=== PATIENT | female | born 1940 | race Caucasian/White ===

== ENCOUNTER 2018-03-23 12:43 | Emergency (ER) | payer MEDICARE ==
--- NOTE | 2018-03-23 13:09 | ED ---
Lower Extremity - HPI Summary HPI Summary: A 77 y/o F presents to ED with LLE pain at ankle onset at 12:15 this date when she slipped on the ice. She denies pain elsewhere. Associated sx: L ankle swelling. The pain is 10/10 with weight-bearing. PMHx: DM, depression. She is a non-smoker, no ETOH. - History of Current Complaint Chief Complaint: EDExtremityLower Stated Complaint: LEFT ANKLE INJURY Time Seen by Provider: 03/23/18 13:01 Hx Obtained From: Patient Mechanism Of Injury: Fall From A Standing Position Onset of Pain: Immediate, Prior to Arrival Onset/Duration: Hours Severity Initially: Severe Severity Currently: Severe Pain Intensity: 10 Pain Scale Used: 0-10 Numeric Timing: Constant Location: Is Discrete @ - LLE Associated Signs And Symptoms: Positive: Negative. Negative: Knee Pain Aggravating Factor(s): Weight Bearing - Allergies/Home Medications Allergies/Adverse Reactions: Allergies Allergy/AdvReac Type Severity Reaction Status Date / Time sulfamethoxazole Allergy Rash Verified 03/23/18 12:49 [From Bactrim] trimethoprim [From Bactrim] Allergy Rash Verified 03/23/18 12:49 metformin Allergy Unknown Uncoded 03/23/18 12:49 Reaction Details Home Medications: Home Medications ARIPiprazole [Aripiprazole] 10 mg PO 03/23/18 [History] Desvenlafaxine [Desvenlafaxine ER] 50 mg PO 03/23/18 [History] Dulaglutide (NF) [Trulicity (NF)] 03/23/18 [History] Gabapentin CAP(*) [Neurontin 100 mg CAP(*)] 100 mg PO QID 03/23/18 [History Confirmed 03/23/18] PMH/Surg Hx/FS Hx/Imm Hx Previously Healthy: No Endocrine/Hematology History: Reports: Hx Diabetes Denies: Hx Anticoagulant Therapy Cardiovascular History: Reports: Other Cardiovascular Problems/Disorders - pnuemonia x 2 over last four years History: Reports: Other Problems/Disorders - minimal change kidney disorder urine into blood stream? Psychiatric History: Reports: Hx Depression - Surgical History Surgery Procedure, Year, and Place: gallbladder partial hyster Infectious Disease History: No Infectious Disease History: Denies: Traveled Outside the [place] in Last 30 Days - Family History Family History: Neg: breast CA - Social History Occupation: Retired Lives: Alone Alcohol Use: None Hx Substance Use: No Substance Use Type: Reports: None Hx Tobacco Use: No Smoking Status (MU): Never Smoked Tobacco Review of Systems Negative: Fever Positive: Arthralgia - L ankle, Edema - L ankle All Other Systems Reviewed And Are Negative: Yes Physical Exam - Summary Physical Exam Summary: VITAL SIGNS: Reviewed. GENERAL: Patient is a well-developed and nourished FEMALE who is lying comfortable in the stretcher. Patient is not in any acute respiratory distress. HEAD AND FACE: No signs of trauma. No ecchymosis, hematomas or skull depressions. No sinus tenderness. EYES: PERRLA, EOMI x 2, No injected conjunctiva, no nystagmus. EARS: Hearing grossly intact. Ear canals and tympanic membranes are within normal limits. MOUTH: Oropharynx within normal limits. NECK: Supple, trachea is midline, no adenopathy, no JVD, no carotid bruit, no c- spine tenderness, neck with full ROM. CHEST: Symmetric, no tenderness at palpation LUNGS: Clear to auscultation bilaterally. No wheezing or crackles. CVS: Regular rate and rhythm, S1 and S2 present, no murmurs or gallops appreciated. ABDOMEN: Soft, non-tender. No signs of distention. No rebound, no guarding, and no masses palpated. Bowel sounds are normal. EXTREMITIES: FROM in all major joints, no edema, no cyanosis or clubbing EXCEPT swelling to L lateral malleolus with decreased ROM, which has good pulses, good capillary refill, and good sensations NEURO: Alert and oriented x 3. No acute neurological deficits. Speech is normal and follows commands. SKIN: Dry and warm Triage Information Reviewed: Yes Vital Signs On Initial Exam: Initial Vitals Temp Pulse Resp BP Pulse Ox 97.8 F 73 19 126/83 99 03/23/18 12:46 03/23/18 12:46 03/23/18 12:46 03/23/18 12:46 03/23/18 12:46 Vital Signs Reviewed: Yes Diagnostics - Vital Signs Vital Signs Temp Pulse Resp BP Pulse Ox 03/23/18 12:46 97.8 F 73 19 126/83 99 - Laboratory Lab Statement: Any lab studies that have been ordered have been reviewed, and results considered in the medical decision making process. - Radiology L FOOT Radiology Interpretation Completed By: Radiologist Summary of Radiographic Findings: IMPRESSION: 1. A minimally displaced fibular fracture is incompletely evaluated. 2. No fracture within the left foot. 3. Osteopenia. 4. Moderate osteoarthropathy about the dorsal midfoot, first MTP and first IP. ED provider has reviewed this report. L ANKLE Radiology Interpretation Completed By: Radiologist Summary of Radiographic Findings: IMPRESSION: 1. There is soft tissue swelling about the lateral malleolus. 2. A minimally displaced, transversely oriented, distal fibular fracture extends to the level of the talar dome. ED provider has reviewed this report. Re-Evaluation - Re-Evaluation 1 Comment: Discussing XR results with pt. Lower Extremity Course/Dx - Course Assessment/Plan: A 77 y/o F presents to ED with LLE pain at ankle onset at 12: 15 this date when she slipped on the ice. She denies pain elsewhere. Associated sx: L ankle swelling. The pain is 10/10 with weight-bearing. PMHx: DM, depression. She is a non-smoker, no ETOH. Ankle x-ray impression: There is a soft tissue swelling about the lateral malleolus. Minimal displaced transversely oriented distal fibular fractures extends to the level of the talus bone. Foot x-ray impression: Minimal displaced fibular fracture is incomplete evaluated. Osteopenia. Moderate osteoarthropathy about the dorsal midfoot. First MTP and first IP. I placed in a posterior splint in the left lower extremity without any complications. Before and after the splint placement the patient is neurovascularly intact. Patient has good pulses and good capillary refill. Discussed the case with Dr. Pastrana from orthopedics and recommends discharged home and follow up with her office tomorrow morning. Patient will be given crutches, pain medication and she will be discharged home with follow-up with orthopedics. - Diagnoses Differential Diagnosis/HQI/PQRI: Positive: Bursitis, Contusion, Fracture (Closed ), Sprain, Strain Provider Diagnoses: Fracture of fibula, distal, left, closed - Physician Notifications Discussed Care Of Patient With: Ryanne Pastrana - ortho Time Discussed With Above Provider: 14:22 Instructed by Provider To: Other - Recommends D/C and f/u in office tomorrow Discharge - Sign-Out/Discharge Documenting (check all that apply): Patient Departure - DC - Discharge Plan Condition: Stable Disposition: HOME Prescriptions: HYDROcodone/ACETAMIN 5-325 MG* [Americus 5-325 TAB*] 1 tab PO Q6H PRN #10 tab MDD 4 PRN Reason: Pain Patient Education Materials: Hydrocodone/Acetaminophen (By mouth), Ankle Fracture (ED) Referrals: Celestina Sams MD [Primary Care Provider] - 3 Days Ryanne aPstrana MD [Medical Doctor] - 1 Day Additional Instructions: RETURN TO THE ED FOR ANY WORSENING OR NEW SYMPTOMS. Follow up with Dr. Pastrana, orthopedics, tomorrow. - Billing Disposition and Condition Condition: STABLE Disposition: Home - Attestation Statements Document Initiated by Scribe: Yes Documenting Scribe: Pamela Duff Provider For Whom Mike is Documenting (Include Credential): Dr. Saqib Barrera MD Scribe Attestation: Pamela Bradshaw, scribed for Dr. Saqib Barrera MD on 03/24/18 at 1719. Scribe Documentation Reviewed: Yes Provider Attestation: The documentation as recorded by the Pamela michele accurately reflects the service I personally performed and the decisions made by me, Dr. Saqib Barrera MD Status of Scribe Document: Viewed
[2018-03-23 15:02] VITALS: BP 179/85
== END 2018-03-23 15:00 | disposition home or self-care (01) ==
LOC: ED 12:43
DX: S82.402A Unspecified fracture of shaft of left fibula, initial encounter for closed fracture (principal); R60.9 Edema, unspecified; W00.0XXA Fall on same level due to ice and snow, initial encounter; Y92.9 Unspecified place or not applicable; Z88.2 Allergy status to sulfonamides; E11.9 Type 2 diabetes mellitus without complications
CPT/HCPCS: 99282

== ENCOUNTER 2023-08-24 21:26 | Observation (INO) ==
[2023-08-24] MEDS ORDERED: Lidocaine 2% w/ EPI 1:200,000 MPF 20 ML SDV VIAL ONE (21:52)
[2023-08-24] MEDS: Lidocaine 1% w EPI 1:200,000 SDV 30 ML VIAL INJ ONE (22:00)
[2023-08-25 00:47] LABS: ABS Eosinophils 0.1 10^3/uL (0.0-0.5); ABS Lymphocytes 1.1 10^3/uL (1.0-4.8); ABS Monocytes 0.8 10^3/uL (0.0-0.9); ABS Neutrophils 7.4 10^3/uL (1.5-7.6); Eosinophil % 0.9 %; Hematocrit 32.6 % (35-45); Hemoglobin 10.6 g/dL (11.5-14.3); Lymphocyte % 11.4 %; Mean Corpuscular Hemoglobin 28.5 pg (27-33); Mean Corpuscular Hgb Conc 32.6 g/dL (31-36); Mean Corpuscular Volume 87.5 fL (80-97); Mean Platelet Volume 7.1 fL (7.5-11.2); Platelet Count 307 10^3/uL (150-450); Red Blood Count 3.72 10^6/uL (3.63-4.92); Red Cell Distribution Width 14.1 % (12-17); White Blood Count 9.4 10^3/uL (3.8-11.8)
[2023-08-25 00:58] LABS: INR 1.12 (0.83-1.13)
[2023-08-25 01:00] LABS: Albumin 3.8 g/dL (3.2-5.2); Albumin/Globulin Ratio 1.5 (1-3); Calcium 8.7 mg/dL (8.6-10.3); Creatinine, Serum 0.87 mg/dL (0.51-0.95); Globulin 2.5 g/dL (2-4); Potassium 4.1 mmol/L (3.5-5.0); Total Bilirubin 0.5 mg/dL (0.2-1.0); Total Protein 6.3 g/dL (6.4-8.9); eGFR CKD-EPI 66.9 (>60)
[2023-08-25] MEDS: Iodixanol (CONTRAST) 320 MG/ML 100 ML SDV IV ONE (01:56)
[2023-08-25 02:32] LABS: High Sensitivity Troponin 1 Hr 8 pg/mL (<15)
[2023-08-25] MEDS ORDERED: Dextrose 50% Syringe 50 ml 25 GM/50 ML SYRINGE IV PUSH PRN (04:06)
[2023-08-25] MEDS: cefTRIAXone 1 gm/50 mL D5W 1 GM/50 ML BAG IV ONE (04:15)
[2023-08-25] MEDS: Azithromycin 500 mg/250 ml NS 500 MG/250 ML BAG IVPB ONE (05:08)
[2023-08-25 06:03] LABS: Urine Appearance Clear; Urine Bilirubin Negative (Negative); Urine Blood Negative (Negative); Urine Color Light-Yellow; Urine Glucose Negative (Negative); Urine Ketones Trace (Negative); Urine Nitrite Negative (Negative); Urine Protein Trace (Negative); Urine Specific Gravity >1.050 (1.002-1.030); Urine Urobilinogen Negative (Negative); Urine pH 6.5 (5.0-8.0)
[2023-08-25 13:54] LABS: Magnesium 2.1 mg/dL (1.9-2.7)
[2023-08-25] MEDS: Insulin GLARGINE 100 un/ml 10 ml VIAL SUBCUT SCH (13:56)
[2023-08-25] MEDS: CMC:Desvenlafaxine 50 mg TAB ER (NF) PO SCH (14:00)
[2023-08-26] MEDS ORDERED: cefTRIAXone 1 gm/50 mL D5W 1 GM/50 ML BAG IV SCH (03:30)
[2023-08-26] MEDS: cefTRIAXone 1 gm/50 mL D5W 1 GM/50 ML BAG IV SCH (03:39)
[2023-08-26] MEDS: Azithromycin 500 mg/250 ml NS 500 MG/250 ML BAG IVPB SCH (04:49)
[2023-08-26] MEDS ORDERED: Azithromycin 500 mg/250 ml NS 500 MG/250 ML BAG IVPB SCH (05:00)
[2023-08-26 05:55] LABS: ABS Lymphocytes 1.5 10^3/uL (1.0-4.8); Eosinophil % 0.4 %; Hematocrit 28.3 % (35-45); Hemoglobin 9.5 g/dL (11.5-14.3); Lymphocyte % 12.2 %; Mean Corpuscular Hemoglobin 29.3 pg (27-33); Mean Corpuscular Hgb Conc 33.6 g/dL (31-36); Mean Corpuscular Volume 87.2 fL (80-97); Mean Platelet Volume 7.5 fL (7.5-11.2); Platelet Count 269 10^3/uL (150-450); Red Blood Count 3.25 10^6/uL (3.63-4.92); Red Cell Distribution Width 14.2 % (12-17); White Blood Count 12.5 10^3/uL (3.8-11.8)
[2023-08-26 06:12] LABS: Calcium 8.4 mg/dL (8.6-10.3); Creatinine, Serum 0.81 mg/dL (0.51-0.95); Potassium 4.1 mmol/L (3.5-5.0); eGFR CKD-EPI 72.9 (>60)
[2023-08-26 09:53] LABS: C Reactive Protein 121.04 mg/L (<8.01)
[2023-08-26] MEDS: guaiFENesin 100 mg/5 ml LIQ unit dose cup PO PRN (10:00)
[2023-08-27 13:39] VITALS: BP 124/58
== END 2023-08-27 17:15 | disposition home or self-care (01) ==
LOC: ED 21:26 → EDHOLD 21:26 → SUATTDRO 08-25 03:17 → EDHOLD 08-25 13:49 → MED 08-25 17:49
PROVIDERS: ADMIT Student in an Organized Health Care Education/Training Program; ATTEND Student in an Organized Health Care Education/Training Program